=== PATIENT | female | born 1985 | race Hispanic/Latino ===

== ENCOUNTER 2018-12-05 21:01 | Emergency (ER) | payer SELFPAY ==
[2018-12-05 21:42] LABS: Bilirubin Negative (Negative); Blood, Urine Negative (Negative); Clarity CLEAR (Clear); Glucose, Urine (Dipstick) Negative (Negative); Leukocyte Trace (Negative); Nitrite Negative (Negative); Protein, Urine (Dipstick) Negative (Neg-Trace); Specific Gravity, Urine 1.005 (1.002-1.036); Urobilinogen 0.2 mg/dL (0.2-1.0)
[2018-12-05 21:45] LABS: Bacteria/HPF None Seen HPF (None Seen); Hyaline Casts/LPF 0-3 HYALINE CAST LPF (0-3 Hyaline); RBC/HPF 0-3 HPF (0-3); Squamous Epithelial None Seen HPF (0-3); WBC/HPF 0-3 HPF (0-3)
[2018-12-05 21:52] LABS: #Basophils 0.1 thou/uL (0.0-0.2); #Eosinphils 0.1 thou/uL (0.0-0.7); #Lymphocytes 2.5 thou/uL (1.20-3.40); #Monocytes 0.5 thou/uL (0.11-0.59); #Neutrophils 4.8 thou/uL (1.40-6.50); %Eosinophils 1.7 % (0.0-10.0); %Lymphocytes 31.1 % (21.0-51.0); %Monocytes 6.7 % (0.0-10.0); %Neutrophils 59.5 % (42.0-75.0); Hemoglobin 11.4 g/dL (12.0-16.0); Mean Corpuscular HGB CONC 34.2 g/dL (32.0-36.0); Mean Corpuscular Hemoglobin 29.5 pg (27.0-31.0); Mean Corpuscular Volume 86.4 fL (78.0-98.0); Mean Platelet Volume 7.8 fL (7.4-10.4); Platelet Count 272 thou/uL (130-400); RBC Distribution Width 12.5 % (11.5-14.5); Red Blood Cell (RBC) Count 3.84 mill/uL (4.20-5.40)
[2018-12-05 22:20] LABS: ALT (SGPT) 10 U/L (8-55); AST (SGOT) 14 U/L (5-34); Albumin 3.9 g/dL (3.5-5.0); Alkaline Phosphatase 53 U/L (40-150); Anion Gap 10 mmol/L (10-20); BUN (Urea Nitrogen) 5 mg/dL (7.0-18.7); Bilirubin, Total 0.4 mg/dL (0.2-1.2); Calc. Creatinine Clearance 0 mL/min (70-130); Calcium 9.7 mg/dL (7.8-10.44); Carbon Dioxide 24 mmol/L (22-29); Chloride 107 mmol/L (98-107); Estimated GFR-MDRD Greater than 90; Globulin 3.6 g/dL (2.4-3.5); Glucose 70 mg/dL (70-105); Potassium 3.4 mmol/L (3.5-5.1); Protein, Total 7.5 g/dL (6.0-8.3); Sodium 138 mmol/L (136-145)
== END 2018-12-05 22:41 | disposition home or self-care (01) ==
LOC: ERS 21:01
DX: O98.512 Other viral diseases complicating pregnancy, second trimester (principal); B34.9 Viral infection, unspecified; Z3A.18 18 weeks gestation of pregnancy
CPT/HCPCS: 36415; 80053; 81003; 81015; 85025; 87086; 87804; 99283

== ENCOUNTER 2019-03-19 22:16 | Emergency (ER) | payer SELFPAY ==
--- NOTE | 2019-03-19 22:59 | RAD ---
TWO VIEWS CHEST: 03/19/19 HISTORY: Cough, sore throat. PA and lateral views of the chest were obtained. The lungs are well aerated. No evidence of active i ntrathoracic disease seen. No evidence of effusions, pneumonia or pneumothorax seen. IMPRESSION: Unremarkable two views chest. POS: [facility]
== END 2019-03-20 00:01 | disposition home or self-care (01) ==
LOC: ERS 22:16
DX: O99.513 Diseases of the respiratory system complicating pregnancy, third trimester (principal); J06.9 Acute upper respiratory infection, unspecified; O99.89 Other specified diseases and conditions complicating pregnancy, childbirth and the puerperium; R10.9 Unspecified abdominal pain; Z3A.35 35 weeks gestation of pregnancy
CPT/HCPCS: 71046; 87081; 87430; 87804

== ENCOUNTER 2019-04-28 17:29 | Inpatient (IN) | payer OTHER, SELFPAY ==
[2019-04-28 18:12] VITALS: BMI 33.0
[2019-04-28] MEDS ORDERED: Lactated Ringer's 1,000 ML IV SCH ×2 (18:15→20:15)
--- NOTE | 2019-04-28 18:29 | PDOC.LDHP ---
Labor and Delivery H&P Allergies/Adverse Reactions: Allergies Allergy/AdvReac Type Severity Reaction Status Date / Time No Known Allergies Allergy Unverified 04/28/19 18:05 - Plan -: PCP: Facundo-GUIDO HPI: This is a 34 yo at 40.2 wks by LMP/1TUS presenting for contractions which started yesterday afternoon. She feels them every 15 minutes or so. Described as a cramping pain which sometimes radiates around to the back. She states she passed a quarter sized blood clot when she went to the restroom earlier today which was red and white. Denies burning or blood with urination. Denies flank pain. She affirms movement, denies cxns, denies ROM. Denies THOMSON, visual changes, orSOB. History: OB hx: C/S for second child 2/2 NRFHT in [place] per her report, vertical scar , x2 PMH: neg PSH: C/S, Cholecystecomty Meds: PNV Soc Hx: denies smoking, alcohol, drugs Fam Hx: denies downs, congenital defects Blood type: A+ Abs screen neg Hep b neg RPR/HIV neg Rubella immune PAP NILM, HR HPV+ GC/CT neg GBS: neg 1 hr GCT: neg + Dengue IgG, neg IgM no sxs REVIEW OF SYSTEMS: Gen: no fever, chills, or sweats Neuro: no numbness/tingling, no weakness, denies headache Eyes: no visual changes ENT: no hearing changes, no sore throat, no runny nose Resp: no cough, no SOB, no wheeze Card: denies chest pain, no palpitations GI: no N/V/D, no abdominal pain : no dysuria, no hematuria MSK: no myalgias, no joint pain/stiffness Heme: no easy bruising/bleeding Skin: no rash, no erythema PHYSICAL EXAMINATION: General: NAD, alert and oriented x3 HEENT: PERRLA, EOMI, normal sclera, oropharynx without erythema or exudate Neck: Supple. Full ROM. Heart/Cardiovascular System: RRR, Cap refill < 3 seconds, no rub, no murmur Lungs/Respiratory System: clear to auscultation bilaterally. No increased work of breathing. Room air. Abdomen/Gastro-Intestinal System: no abdominal tenderness, normal bowel sounds, Gravid Extremities: Warm extremities. No cyanosis or edema. Neuro: No gross deficits appreciated. CN 2-12 grossly intact Psychiatry: Awake, Alert and cooperative with exam Skin: No lesions, rashes, or ulcers, Vertical c/s scar Musculoskeletal: Full ROM A/P: This is a 34 yo at 40.2 wks by LMP/1TUS presenting for labor r/o # Term , TOLAC, labor r/o - 03/23/3 @ 1826 - Irregular cxns on monitor - Cat 1 strip - Will re-check in 2-4 hours # Anemia of # HR HPV/NILM Addendum - Attending - Attending Attestation Date/Time: 05/01/19 0613 I personally evaluated the patient and discussed the management with Dr. Ramires. I agree with the History, Examination, Assessment and Plan documented above with any addition or exceptions noted below. Pt reports ucx, vital signs reviewed and wnl. Will be admitted for labor expectant management.
[2019-04-28] MEDS ORDERED: Lidocaine 1% (PF) 30 ML VIAL SC PRN (20:10)
[2019-04-28] MEDS ORDERED: Ondansetron PF 4 MG/2 ML Vial IVP PRN ×2 (20:11→22:36)
[2019-04-28] MEDS ORDERED: Promethazine HCl 25 MG/ML VIAL IM PRN (20:11)
--- NOTE | 2019-04-28 20:16 | PDOC.LDPN ---
Labor & Delivery Progress Note - Subjective Subjective: painful contractions - Objective Vital signs reviewed and normal: yes General: NAD, breathing through contractions Dilation: 6 Effacement: 50% Station: -3 FHT: category 1, early decelerations, variability present [place] contractions every: 7-8 - Assessment (1) Term Code(s): Z34.90 - ENCNTR FOR SUPRVSN OF NORMAL , UNSP, UNSP TRIMESTER Current Visit: Yes Status: Acute -: This is a 34 yo at 40.2 wks by LMP/1TUS presenting for labor r/o # Term , TOLAC, labor r/o - 03/23/-3 @ 1826 - /-3 @ 2014 - cxns q7-8, early decels - Cat 1 strip - expectant management # Anemia of # HR HPV/NILM
[2019-04-28 20:59] LABS: Mean Corpuscular HGB CONC 33.1 g/dL (32.0-36.0); Mean Corpuscular Hemoglobin 28.4 pg (27.0-31.0); Mean Corpuscular Volume 85.8 fL (78.0-98.0); Mean Platelet Volume 9.7 fL (7.4-10.4); Platelet Count 242 thou/uL (130-400); RBC Distribution Width 15.2 % (11.5-14.5); Red Blood Cell (RBC) Count 4.24 mill/uL (4.20-5.40); White Blood Cell (WBC) Count 7.8 thou/uL (4.8-10.8)
[2019-04-28 21:30] LABS: Syphilis Antibody Nonreactive (Nonreactive); Syphilis Antibody Index 0.03 S/CO (<1.00 Non-Reactive)
--- NOTE | 2019-04-28 21:33 | PDOC.LDPN ---
Labor & Delivery Progress Note - Subjective Subjective: painful contractions - Objective General: breathing through contractions Dilation: 8 Effacement: 75% Station: -1 FHT: category 1, early decelerations, variability present - Assessment (1) Term Code(s): Z34.90 - ENCNTR FOR SUPRVSN OF NORMAL , UNSP, UNSP TRIMESTER Current Visit: Yes Status: Acute -: # Term , TOLAC, labor r/o - 03/23/-3 @ 182 - /50/-3 @ 2014 - /-1 @ 2129 - cxns q5-6, early decels - Cat 1 strip - expectant management # Anemia of - hgb 12.0 # HR HPV/NILM
[2019-04-28 22:31] LABS: HBSAg Index 0.27 S/CO (0-0.99); Hep B Surf Ag Non-Reactive S/CO (NonReactive)
[2019-04-28] MEDS: NS / Oxytocin 40 units/1000ml 1,000 ML IV PRN (22:35)
[2019-04-28] MEDS ORDERED: Milk Of Magnesia 30 ML UDCUP PO PRN (22:36)
[2019-04-28] MEDS ORDERED: Bisacodyl 10 MG SUPP PR PRN (22:36)
[2019-04-28] MEDS ORDERED: Benzocaine-Menthol 82.5 ML CAN TOP PRN (22:36)
[2019-04-28] MEDS ORDERED: HYDROcodone/Acetaminophen 5/325 mg Tablet PO SCH (22:45)
[2019-04-28] MEDS ORDERED: NS / Oxytocin 40 units/1000ml 1,000 ML IV SCH (22:45)
--- NOTE | 2019-04-28 22:50 | PDOC.OPDEL ---
OB Operative/Delivery Note - Additional Findings/Plan Compilations/Other Findings: Vaginal Delivery Procedure note Delivering Physician: Dr. Atif Ramires Attending: Dr. Blane Franks Procedure: Spontaneous Vaginal Delivery Anesthesia: none QBL: 59ml Pre-op Diagnosis: 1. Term intrauterine in labor 2. Anemia of 3. AMA Post-op Diagnosis: 1. Term intrauterine in labor 2. Anemia of 3. AMA Indications: A 34y/o female presents in active labor Delivery Note: This is 24yo F @ 40.2 wks who delivered a viable M infant at 2229. Following an uneventful antepartum course, a vigorous male was delivered over an intact perineum in the Right occipitoanterior position. Anterior Shoulder and then remainder of the body delivered. No nuchal cord. The head was held down and mouth and nares were bulb suctioned. Cord clamped and cut and cord blood collected. Placenta delivered intact Gomez presentation with a 3 vessel cord noted. Fundal massage was performed and the fundus was firm. The cervix and vagina were inspected and found to be free of lacerations. went to nursery in good condition for routine care. Apgars were 9 /9 at 1 & 5 minutes, respectively. Patient tolerated delivery well and went to after routine recovery/care. Addendum - Attending - Attending Attestation Date/Time: 05/01/19 6226 I personally evaluated the patient and discussed the management with Dr. Ramires I agree with the History, Examination, Assessment and Plan documented above with any addition or exceptions noted below. I was present and supervising for the entire 2nd and 3rd stages of labor. No complications.
[2019-04-29] MEDS: NS / Oxytocin 40 units/1000ml 1,000 ML IV PRN (03:24)
[2019-04-29] MEDS: Ibuprofen 800 MG TAB PO SCH ×3 (05:55→23:00)
[2019-04-29 06:08] LABS: Hemoglobin 10.9 g/dL (12.0-16.0); Mean Corpuscular HGB CONC 32.5 g/dL (32.0-36.0); Mean Corpuscular Hemoglobin 27.9 pg (27.0-31.0); Mean Corpuscular Volume 85.9 fL (78.0-98.0); Mean Platelet Volume 9.2 fL (7.4-10.4); Platelet Count 225 thou/uL (130-400); RBC Distribution Width 15.3 % (11.5-14.5); White Blood Cell (WBC) Count 12.3 thou/uL (4.8-10.8)
--- NOTE | 2019-04-29 07:36 | PDOC.PP ---
Post Progress Note Post Day #: 1 Subjective: Patient states she is feeling well overall. Tolerating PO intake w/o issues. Ambulates to restroom without sxs of lightheadedness. She has had to change pad x3 because of bleeding. PO intake tolerated: yes Flatus: yes Ambulation: yes Weight Weight 76.657 kg - Physical Examination General: NAD Cardiovascular: no m/r/g, RRR Respiratory: clear to auscultation bilaterally, non-labored breathing Abdominal: + bowel sounds, appropriately TTP Fundus firm & at: umbilicus Extremities: negative homans (B) Neurological: no gross focal deficits Psychiatric: A&Ox3, normal affect Result Diagrams: 04/29/19 05:53 Additional Labs: Post Labs Blood Type O POSITIVE 04/29/19 01:53 Hep Bs Antigen Non-Reactive S/CO (NonReactive) 04/28/19 20:24 (1) Term Code(s): Z34.90 - ENCNTR FOR SUPRVSN OF NORMAL , UNSP, UNSP TRIMESTER Status: Acute - Assessment/Plan # Term , delivered, PPD 1 - pain well-controlled - tolerating PO well - ambulating - establishing - will monitor bleeding, VSS, asx # Anemia of - hgb 12.0-> 10.9 # HR HPV/NILM - f/u in 1 year
--- NOTE | 2019-04-29 08:11 | PRG ---
DATE OF SERVICE: 04/29/2019 SUBJECTIVE: The patient is day 1, status post an uncomplicated term spontaneous vaginal delivery around 10:00 last night. The patient reports that she is tolerating p.o., voiding on her own, having decreased lochia, and good pain control. OBJECTIVE: VITAL SIGNS: Vital signs have been reviewed and are stable, normal. GENERAL: The patient appears to be in no acute distress. She is alert, oriented, cooperative, and pleasant to interact with. HEENT: Head is normocephalic and atraumatic. FUNDUS: Firm at the umbilicus. EXTREMITIES: Nontender and nonedematous. LABORATORY DATA: Her post delivery hemoglobin is 10.9, hematocrit 33.5, and platelets 225,000. ASSESSMENT AND PLAN: The patient is day 1, status post a term spontaneous vaginal delivery. Given the lateness of her delivery, discharge will be tomorrow, pending any complications. Job ID: [id number]
[2019-04-29] MEDS: Docusate Calcium (SURFAK) 240 MG CAP PO SCH ×2 (08:58→23:00)
[2019-04-29] MEDS: Ferrous Sulfate 325 MG TAB PO SCH ×2 (08:58→16:53)
[2019-04-29] MEDS ORDERED: Adacel (T-DAP) 0.5 ML SYRINGE IM ONE (09:00)
--- NOTE | 2019-04-30 07:50 | PDOC.PP ---
Post Progress Note Post Day #: 2 Subjective: feeling well, ready to go home. Minimal bleeding. Ambulating, eating well. Pain well controlled PO intake tolerated: yes Flatus: yes Ambulation: yes Vital Signs (12 hours) Temp Pulse Resp BP BP Pulse Ox 04/30/19 04:00 98.0 F 62 17 96/51 L 04/29/19 20:00 98.1 F 68 18 95/55 L 99 Weight Weight 76.657 kg - Physical Examination General: NAD Cardiovascular: no m/r/g, RRR Respiratory: clear to auscultation bilaterally, non-labored breathing Abdominal: + bowel sounds, no distention, appropriately TTP Skin: CS incision dry & intact, no rash Neurological: no gross focal deficits Psychiatric: A&Ox3, normal affect Result Diagrams: 04/29/19 05:53 Additional Labs: Post Labs Blood Type O POSITIVE 04/29/19 01:53 Hep Bs Antigen Non-Reactive S/CO (NonReactive) 04/28/19 20:24 (1) Term Code(s): Z34.90 - ENCNTR FOR SUPRVSN OF NORMAL , UNSP, UNSP TRIMESTER Status: Acute - Assessment/Plan # Term , delivered, PPD 2 - pain well-controlled - tolerating PO well - ambulating - establishing # Anemia of - hgb 12.0-> 10.9 # HR HPV/NILM - f/u in 1 year D/C today, f/u at [facility] in 2 weeks
[2019-04-30 08:54] VITALS: BP 102/67; TEMP 97.7
[2019-04-30] MEDS: Ferrous Sulfate 325 MG TAB PO SCH (09:38)
[2019-04-30] MEDS: Docusate Calcium (SURFAK) 240 MG CAP PO SCH (09:38)
[2019-04-30] MEDS: Ibuprofen 800 MG TAB PO SCH (09:40)
== END 2019-04-30 11:35 | disposition home or self-care (01) | DRG 807 ==
LOC: L&D/OP 17:29 → L&D 21:09 → 3SW 04-29 14:18
PROVIDERS: ADMIT Obstetrics & Gynecology; ATTEND Obstetrics & Gynecology
PROC: 10E0XZZ Delivery of Products of Conception, External Approach (ICD-10-PCS; principal; 2019-04-28)
DX: O99.02 Anemia complicating childbirth (principal); Z37.0 Single live birth; Z3A.40 40 weeks gestation of pregnancy; D64.9 Anemia, unspecified
CPT/HCPCS: 36415; 85027; 86780; 86850; 86900; 86901; 87340; 99285; J2001

== ENCOUNTER 2019-10-07 10:31 | Emergency (ER) | payer MEDICAID, SELFPAY ==
[2019-10-07 10:53] LABS: #Basophils 0.1 thou/uL (0.0-0.2); #Eosinphils 0.1 thou/uL (0.0-0.7); #Lymphocytes 2.2 thou/uL (1.20-3.40); #Monocytes 0.4 thou/uL (0.11-0.59); %Basophils 1.4 % (0.0-1.0); %Eosinophils 2.4 % (0.0-10.0); %Lymphocytes 46.1 % (21.0-51.0); %Monocytes 7.5 % (0.0-10.0); %Neutrophils 42.7 % (42.0-75.0); Hemoglobin 12.6 g/dL (12.0-16.0); Mean Corpuscular HGB CONC 34.3 g/dL (32.0-36.0); Mean Corpuscular Hemoglobin 29.8 pg (27.0-31.0); Mean Platelet Volume 7.7 fL (7.4-10.4); Platelet Count 231 thou/uL (130-400); RBC Distribution Width 11.7 % (11.5-14.5); Red Blood Cell (RBC) Count 4.22 mill/uL (4.20-5.40); White Blood Cell (WBC) Count 4.7 thou/uL (4.8-10.8)
[2019-10-07 11:22] LABS: ALT (SGPT) 147 U/L (8-55); AST (SGOT) 103 U/L (5-34); Albumin 4.6 g/dL (3.5-5.0); Alkaline Phosphatase 99 U/L (40-110); Anion Gap 13 mmol/L (10-20); BUN (Urea Nitrogen) 11 mg/dL (7.0-18.7); Bilirubin, Total 0.7 mg/dL (0.2-1.2); Calc. Creatinine Clearance 0 mL/min (70-130); Calcium 9.3 mg/dL (7.8-10.44); Carbon Dioxide 24 mmol/L (22-29); Chloride 106 mmol/L (98-107); Estimated GFR-MDRD Greater than 90; Globulin 3.3 g/dL (2.4-3.5); Glucose 89 mg/dL (70-105); Protein, Total 7.9 g/dL (6.0-8.3); Sodium 139 mmol/L (136-145)
[2019-10-07 11:53] LABS: Bilirubin Negative (Negative); Blood, Urine Negative (Negative); Clarity Clear (Clear); Glucose, Urine (Dipstick) Normal (Negative); Leukocyte Negative Leu/uL (Negative); Nitrite Negative (Negative); Protein, Urine (Dipstick) Negative (Neg-Trace); Urobilinogen Normal mg/dL (Less than 2)
== END 2019-10-07 12:10 | disposition home or self-care (01) ==
LOC: ERS 10:31
DX: K60.2 Anal fissure, unspecified (principal)
CPT/HCPCS: 36415; 80053; 81003; 85025; 86900; 86901; 99283

== ENCOUNTER 2020-06-20 14:40 | Emergency (ER) | payer OTHER, SELFPAY ==
[2020-06-21 12:56] LABS: SARS-CoV-2 MS2 Positive; SARS-CoV-2 N Gene Positive; SARS-CoV-2 S Gene Positive; SARS-CoV-2 orf1ab Positive
[2020-06-21 12:57] LABS: SARS-CoV-2 by NAA DETECTED (NotDetected)
== END 2020-06-20 15:07 | disposition home or self-care (01) ==
LOC: ERS 14:40
DX: U07.1 COVID-19 (principal)
CPT/HCPCS: 87635; 99283; U0003

== ENCOUNTER 2020-06-23 10:36 | Emergency (ER) | payer OTHER, SELFPAY | END 2020-06-23 11:01 | disposition home or self-care (01) | LOC: ERS 10:36 | DX: J02.9 Acute pharyngitis, unspecified (principal); Z20.828 Contact with and (suspected) exposure to other viral communicable diseases | CPT/HCPCS: 99282 ==

== ENCOUNTER 2021-05-31 09:24 | Emergency (ER) | payer SELFPAY ==
[2021-05-31] MEDS ORDERED: Lidocaine 1% PF 5 ML VIAL ONE (10:55)
[2021-05-31] MEDS ORDERED: Bupivacaine 0.5% 10 ML VIAL ONE (10:55)
== END 2021-05-31 11:20 | disposition home or self-care (01) ==
LOC: ERS 09:24
DX: K08.89 Other specified disorders of teeth and supporting structures (principal)
CPT/HCPCS: 99282; J3490

== ENCOUNTER 2021-12-03 21:06 | Emergency (ER) | payer SELFPAY ==
[2021-12-03 21:41] LABS: Hemoglobin 12.6 g/dL (12.0-16.0); Mean Corpuscular HGB CONC 34.5 g/dL (32.0-36.0); Mean Corpuscular Hemoglobin 30.3 pg (27.0-31.0); Mean Corpuscular Volume 87.7 fL (78.0-98.0); Mean Platelet Volume 7.8 fL (7.4-10.4); Platelet Count 277 thou/uL (130-400); RBC Distribution Width 11.7 % (11.5-14.5); Red Blood Cell (RBC) Count 4.17 mill/uL (4.20-5.40); White Blood Cell (WBC) Count 6.8 thou/uL (4.8-10.8)
[2021-12-03 21:48] LABS: ALT (SGPT) 10 U/L (8-55); AST (SGOT) 14 U/L (5-34); Albumin 4.3 g/dL (3.5-5.0); Alkaline Phosphatase 71 U/L (40-110); Anion Gap 12 mmol/L (10-20); BUN (Urea Nitrogen) 7 mg/dL (7.0-18.7); Bilirubin, Total 0.5 mg/dL (0.2-1.2); Calc. Creatinine Clearance 0 mL/min (70-130); Calcium 9.4 mg/dL (7.8-10.44); Carbon Dioxide 23 mmol/L (22-29); Chloride 108 mmol/L (98-107); Globulin 3.6 g/dL (2.4-3.5); Glucose 107 mg/dL (70-105); Potassium 3.5 mmol/L (3.5-5.1); Protein, Total 7.9 g/dL (6.0-8.3); Sodium 139 mmol/L (136-145)
[2021-12-03 21:56] LABS: Eosinophils 3 % (0-10); Lymphocytes 49 % (21-51); MDiff Complete? YES; Monocytes 5 % (0-10); Neutrophil 32 % (42-75); Platelet Morphology Comment Appears Adequate; Polychromasia SLIGHT = 2-3 cells (100X) (0-2/hpf); Reactive Lymphocytes 7 % (0-10)
== END 2021-12-03 23:50 | disposition home or self-care (01) ==
LOC: ERS 21:06
DX: R53.1 Weakness (principal)
CPT/HCPCS: 71045; 80053; 84484; 85025; 93005

== ENCOUNTER 2023-05-31 19:16 | Emergency (ER) | payer SELFPAY ==
[2023-05-31 20:02] LABS: #Basophils 0.1 thou/uL (0.0-0.2); #Eosinphils 0.1 thou/uL (0.0-0.7); #Monocytes 0.5 thou/uL (0.11-0.59); #Neutrophils 2.1 thou/uL (1.40-6.50); %Basophils 1.1 % (0.0-1.0); %Eosinophils 2.5 % (0.0-10.0); %Lymphocytes 49.5 % (21.0-51.0); %Monocytes 9.6 % (0.0-10.0); %Neutrophils 37.1 % (42.0-75.0); Hemoglobin 12.3 g/dL (12.0-16.0); Mean Corpuscular HGB CONC 32.6 g/dL (32.0-36.0); Mean Corpuscular Hemoglobin 28.9 pg (27.0-31.0); Mean Corpuscular Volume 88.5 fl (78.0-98.0); Mean Platelet Volume 10.7 fL (7.4-10.4); Platelet Count 295 10x3/uL (130-400); RBC Distribution Width 12.6 % (11.5-14.5); Red Blood Cell (RBC) Count 4.26 mill/uL (4.20-5.40); White Blood Cell (WBC) Count 5.6 10x3/uL (4.8-10.8)
[2023-05-31 20:24] LABS: ALT (SGPT) 38 U/L (8-55); AST (SGOT) 33 U/L (5-34); Albumin 4.5 g/dL (3.5-5.0); Alkaline Phosphatase 62 U/L (40-110); Anion Gap 11 mmol/L (10-20); BUN (Urea Nitrogen) 8 mg/dL (7.0-18.7); Bilirubin, Total 0.5 mg/dL (0.2-1.2); Calc. Creatinine Clearance 0 mL/min (70-130); Calcium 9.7 mg/dL (7.8-10.44); Carbon Dioxide 25 mmol/L (22-29); Chloride 107 mmol/L (98-107); Estimated GFR 109; Globulin 3.4 g/dL (2.4-3.5); Glucose 95 mg/dL (70-105); Potassium 3.9 mmol/L (3.5-5.1); Protein, Total 7.9 g/dL (6.0-8.3); Sodium 139 mmol/L (136-145)
[2023-05-31] MEDS ORDERED: Metoclopramide HCl 10 MG/2 ML VIAL ONE (20:44)
[2023-05-31] MEDS ORDERED: Ketorolac Tromethamine 30 MG/ML VIAL ONE (20:44)
[2023-05-31] MEDS ORDERED: diphenhydrAMINE 50 MG/ML VIAL ONE (20:44)
[2023-05-31] MEDS ORDERED: Acetaminophen 500 MG TAB ONE (20:44)
== END 2023-05-31 23:35 | disposition home or self-care (01) ==
LOC: ERS 19:16
DX: R51.9 Headache, unspecified (principal)
CPT/HCPCS: 36415; 70450; 80053; 85025; 96365; 96375; J1200; J1885; J2765

== ENCOUNTER 2023-06-08 14:29 | Emergency (ER) | payer SELFPAY ==
[2023-06-08] MEDS ORDERED: Acetaminophen 500 MG TAB ONE (15:28)
[2023-06-08] MEDS ORDERED: Ketorolac Tromethamine 30 MG/ML VIAL ONE (15:28)
== END 2023-06-08 17:32 | disposition home or self-care (01) ==
LOC: ERS 14:29
DX: R51.9 Headache, unspecified (principal)
CPT/HCPCS: 96374; J1885

== ENCOUNTER 2024-08-16 11:46 | Emergency (ER) | payer SELFPAY ==
[2024-08-16] MEDS ORDERED: Acetaminophen 500 MG TAB ONE (13:29)
[2024-08-16] MEDS ORDERED: Ketorolac Tromethamine 30 MG (1 mL) VIAL ONE (13:29)
[2024-08-16 14:41] LABS: BHCG - Serum Negative (NEGATIVE); Pregs Control Background? CLEAR/WHITE (CLR/WHITE); Pregs Control Bar Appear? YES (CONTROL BAR)
== END 2024-08-16 16:13 | disposition home or self-care (01) ==
LOC: ERS 11:46
DX: M54.12 Radiculopathy, cervical region (principal); M25.511 Pain in right shoulder; Z75.3 Unavailability and inaccessibility of health-care facilities
CPT/HCPCS: 36415; 72040; 72125; 72128; 84703; 96372; J1885